=== PATIENT | male | born 2000 | race Caucasian/White ===

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

== ENCOUNTER 2020-05-18 09:03 | Day surgery (SDC) | payer OTHER ==
[2020-05-15 12:35] VITALS: BMI 19.6
[2020-05-18 09:21] VITALS: TEMP 97.8
[2020-05-18] MEDS ORDERED: LIDOCAINE 1% (10MG/ML) FOR IV START INTRADERMA ONE (09:21)
[2020-05-18] MEDS ORDERED: LACTATED RINGERS 1,000 ML IV ONE (09:21)
[2020-05-18] MEDS ORDERED: PROPOFOL 10 MG/ML 20 ML VIAL IV ONE (10:15)
[2020-05-18] MEDS ORDERED: fentaNYL (PF) 50 MCG/ML 2 ML AMP ONE (10:15)
[2020-05-18] MEDS ORDERED: MIDAZOLAM 2 MG/2 ML VIAL ONE (10:15)
--- NOTE | 2020-05-18 10:32 | P.PCN ---
Date of Procedure: 05/18/20 Description of Procedure: BRIEF HISTORY: 19-year-old male presenting for outpatient EGD for evaluation of epigastric pain. He reports 2 weeks of epigastric pain, nausea and vomiting. Decreased oral intake and association with her symptoms and weight loss. PROCEDURE PERFORMED: Esophagogastroduodenoscopy with biopsy. PREOPERATIVE DIAGNOSIS: Epigastric abdominal pain, nausea and vomiting, unintentional weight loss. ESTIMATED BLOOD LOSS: Minimal. IV sedation per anesthesia. PROCEDURE: After informed consent was obtained, the patient was brought into the endoscopy unit. IV sedation was administered by Anesthesia under continuous monitoring. Initially the Olympus GIF-190 video endoscope was inserted into the mouth. Esophagus intubated without any difficulty. It was gradually advanced into the stomach and duodenum and carefully examined. The bulb and the second part of the duodenum appeared normal, with biopsies taken. The scope at this time was withdrawn to the stomach, adequately insufflated with air, and upon careful examination, mucosa of the antrum, body, cardia and the fundus appeared normal, except for some mild punctate erythema in the antrum and body suggestive of mild gastritis biopsies taken. The scope was then withdrawn into the esophagus. The GE junction was located at 45 cm from the incisors and biopsies. The esophagus appeared normal. There were no erosions or ulcerations seen and the patient tolerated the procedure well. IMPRESSION: 1. Mild gastritis. 2. Biopsies of the GE junction, antrum body and duodenum. RECOMMENDATIONS: The findings of this examination were discussed with the patient and his mother. Okay to resume diet. Okay to resume medications. Await pathology from biopsies. Follow up in GI clinic as scheduled.
[2020-05-18 10:34] VITALS: RESP 16
[2020-05-18 10:42] VITALS: BP 122/80; PULSE 63
== END 2020-05-18 10:59 | disposition home or self-care (01) ==
LOC: ORWHC2ENDO 09:03
PROVIDERS: ATTEND Internal Medicine
DX: K29.50 Unspecified chronic gastritis without bleeding (principal); K21.00 Gastro-esophageal reflux disease with esophagitis, without bleeding; Z79.899 Other long term (current) drug therapy
CPT/HCPCS: 88305; 43239; J2250; J3010; J2704